=== PATIENT | female | born 1985 | race Caucasian/White ===

== ENCOUNTER 2016-07-19 12:40 | Emergency (ER) | payer MEDICAID ==
--- NOTE | 2016-07-19 12:52 | Emergency Department Record ---
History of Present Illness - General Chief complaint: ENT Stated complaint: EAR PAIN Time Seen by Provider: 07/19/16 12:52 Source: Patient Mode of Arrival: Ambulatory Limitations: No limitations - History of Present Illness Initial comments: The patient is here due to a one week hx of intermittent R ear pain. The pain is mainly located near the R TMJ area. It comes and goes and is gone presently. She denies any ST, fever, dental pain, or ear drainage. She did see someone last week in [place] and was given ear drops but they have not helped. MD complaint: Ear pain Onset/Timin -: Week(s) Location: R ear Severity: Moderate Severity scale (1-10): 6 Quality: Sharp Consistency: Constant Improves with: None Worsens with: None - Related Data Home Medications Medication Instructions Recorded Confirmed Last Taken Control Pill 12/26/13 12/26/13 Unknown Omeprazole 20 mg PO DAILY 07/19/16 07/19/16 Unknown Venlafaxine HCl [Effexor] 75 mg PO DAILY 07/19/16 07/19/16 Unknown Previous Rx's Medication Instructions Recorded Naproxen [Naprosyn] 500 mg PO BID #14 tablet. 07/19/16 Allergies Allergy/AdvReac Type Severity Reaction Status Date / Time acetaminophen [From Vicodin] AdvReac NAUSEA AND Verified 12/26/13 15:54 VOMITING hydrocodone bitartrate AdvReac NAUSEA AND Verified 12/26/13 15:54 [From Vicodin] VOMITING Travel Screening - Travel/Exposure Within Last 30 Days Have you traveled within the last 30 days?: No Review of Systems Constitutional: Denies: Chills, Fever Eyes: Denies: Eye discharge ENT: Denies: Congestion Respiratory: Denies: Cough, Dyspnea Past Medical History - SOCIAL HISTORY Smoking Status: Never smoker - RESPIRATORY Hx Respiratory Disorders: No - CARDIOVASCULAR Hx Cardio Disorders: Yes Hx Palpitations: Yes - NEURO Hx Neuro Disorders: No - GI Hx GI Disorders: No - Hx Genitourinary Disorders: No - ENDOCRINE Hx Endocrine Disorders: No - MUSCULOSKELETAL Hx Musculoskeletal Disorders: No - PSYCH Hx Psych Problems: No - HEMATOLOGY/ONCOLOGY Hx Hematology/Oncology Disorders: No Family Medical History Any Significant Family History?: No Physical Exam - General General Appearance: Alert, Oriented x3, Cooperative, No acute distress - Head Head exam: Atraumatic, Normocephalic, Normal inspection - Eye Eye exam: Normal appearance, PERRL - ENT ENT exam: Normal exam, Mucous membranes moist, Normal external ear exam, Normal orophraynx, TM's normal bilaterally Ear exam: Normal external inspection. negative: Auricular hematoma, Auricular trauma, External canal tenderness Teeth exam: Normal inspection. negative: Dental caries Throat exam: Normal inspection. negative: Tonsillar erythema, Tonsillar exudate - Neck Neck exam: Normal inspection, Full ROM. negative: Lymphadenopathy, Meningismus , Tenderness - Respiratory Respiratory exam: Normal lung sounds bilaterally. negative: Respiratory distress Course Vital Signs 07/19/16 12:46 Temperature 97.9 F Pulse Rate 72 Respiratory 12 Rate Blood Pressure 115/67 Pulse Ox 99 - Reevaluation(s) Reevaluation #1: I explained to the patient that the ear appears normal and there is no evidence for any infection. She is to see her PCP next week for recheck. 07/19/16 13:00 Disposition Disposition: Discharge Clinical Impression: Ear pain, right Disposition: Home, Self-Care Condition: (1) Good Instructions: Earache (ED) Additional Instructions: Please take Naprosyn for pain. Please see your PCP for recheck next week. Prescriptions: Naproxen [Naprosyn] 500 mg PO BID #14 tablet.dr Forms: Patient Portal Access Time of Disposition: 12:58
== END 2016-07-19 13:13 | disposition home or self-care (01) ==
LOC: ER 12:40
DX: H92.01 Otalgia, right ear (principal)
CPT/HCPCS: 99282

== ENCOUNTER 2017-10-01 19:29 | Emergency (ER) | payer MEDICAID ==
[2017-10-01] MEDS ORDERED: PROPARACAINE HCL OPTH 15ML BTL OPTH ONE ×2 (19:47→19:48)
--- NOTE | 2017-10-01 20:04 | Emergency Department Record ---
History of Present Illness - General Chief complaint: Eye Problem Stated complaint: SOMETHING IN RT EYE Time Seen by Provider: 10/01/17 19:56 Source: Patient Mode of Arrival: Ambulatory Limitations: No limitations Travel/Exposure to [facility] [place] Within 21 Days of Symptoms: No - History of Present Illness Initial comments: 32 yo female presents to ED for evaluation of redness and irritation to the right eye that began 24 hours ago, reports "I feel like there is something in the eye". Patient denies specific injury, reports that she noticed her eye symptoms shortly after having intercourse with her significant other. Patient denies the use of contact lenses, and reports irrigating the eye last night as she felt there may be a hair in the eye. Patient also reports drainage from the eye this morning. MD chief complaint: Eye redness, Foreign body Onset/Timin -: Days(s) Onset Description: Gradual Location: Right eye Place: Home Eye Symptoms: Blurry vision, Itching, Redness Severity: Moderate Severity scale (1-10): 3 If Pain, Quality: Aching Consistency: Constant Associated Symptoms: None Treatments Prior to Arrival: None - Related Data Visual acuity (L) = 20/: 20 Visual acuity (R) = 20/: 50 With correction: Yes (near and f) Hx Tetanus Toxoid Vaccination: Yes Year of Tetanus Vaccination: unknown Patient Tetanus UTD (within 5 yrs): Yes (3 years ago) Home Medications Medication Instructions Recorded Confirmed Last Taken Loratadine [Allergy Relief] 10 mg PO DAILY 10/01/17 10/01/17 1 Day Ago ~09/30/17 Previous Rx's Medication Instructions Recorded Erythromycin Base [Erythromycin 1 apply AFFEYE BID #1 tube 10/01/17 OPTH Ointment] Allergies Allergy/AdvReac Type Severity Reaction Status Date / Time hydrocodone bitartrate AdvReac NAUSEA AND Verified 10/01/17 19:44 [From Vicodin] VOMITING Travel Screening - Travel/Exposure Within Last 30 Days Have you traveled within the last 30 days?: No - Travel/Exposure Within Last Year Have you traveled outside the [place] in the last year?: No - Additonal Travel Details Have you been exposed to anyone with a communicable illness?: No - Travel Symptoms Symptom Screening: None Review of Systems Constitutional: Denies: Chills, Fever, Malaise, Night sweats Eyes: Reports: Eye discharge, Vision change. Denies: Eye pain ENT: Denies: Congestion, Ear pain, Epistaxis Respiratory: Denies: Cough, Dyspnea Cardiovascular: Denies: Chest pain, Dyspnea on exertion Endocrine: Denies: Fatigue, Heat or cold intolerance Gastrointestinal: Denies: Abdominal pain, Nausea, Vomiting Genitourinary: Denies: Incontinence, Retention Musculoskeletal: Denies: Arthralgia, Back pain, Gout, Joint swelling Skin: Denies: Bruising, Change in color Neurological: Denies: Abnormal gait, Confusion, Headache, Tingling, Tremors Psychiatric: Denies: Anxiety Hematological/Lymphatic: Denies: Anemia, Blood Clots Past Medical History - SOCIAL HISTORY Smoking Status: Never smoker Alcohol Use: None Drug Use: None - RESPIRATORY Hx Respiratory Disorders: No - CARDIOVASCULAR Hx Cardio Disorders: Yes Hx Palpitations: Yes - NEURO Hx Neuro Disorders: No - GI Hx GI Disorders: No - Hx Genitourinary Disorders: No - ENDOCRINE Hx Endocrine Disorders: No - MUSCULOSKELETAL Hx Musculoskeletal Disorders: No - PSYCH Hx Psych Problems: No - HEMATOLOGY/ONCOLOGY Hx Hematology/Oncology Disorders: No Family Medical History Any Significant Family History?: Yes Physical Exam - General General Appearance: Alert, Oriented x3, Cooperative, Mild distress Limitations: No limitations - Head Head exam: Atraumatic, Normocephalic, Normal inspection Head exam detail: negative: Abrasion, Contusion, Carbajal's sign, General tenderness, Hematoma, Laceration - Eye Eye exam: PERRL, Conjunctival injection, Other (There is no florurseceine uptake on examination to suggest corneal abrasion, no FB identified, Negative Eduardo's sign, and no FB identified upper/lower lid eversion.). negative: Periorbital swelling, Periorbital tenderness, Scleral icterus With correction: Yes (near and f) - ENT Ear exam: negative: Auricular hematoma, Auricular trauma Nasal Exam: negative: Active bleeding, Discharge, Dried blood, Foreign body Mouth exam: negative: Drooling, Laceration, Muffled voice, Tongue elevation - Neck Neck exam: Normal inspection. negative: Meningismus, Tenderness - Respiratory Respiratory exam: Normal lung sounds bilaterally. negative: Rhonchi, Stridor, Wheezes - Cardiovascular Cardiovascular Exam: Regular rate, Normal rhythm, Normal heart sounds - GI/Abdominal GI/Abdominal exam: Soft. negative: Distended, Rebound, Rigid, Tenderness - Rectal Rectal exam: Deferred - exam: Deferred - Extremities Extremities exam: Normal inspection. negative: Calf tenderness, Pedal edema, Tenderness - Back Back exam: Denies: CVA tenderness (R), CVA tenderness (L) - Neurological Neurological exam: Alert, Normal gait, Oriented X3 - Psychiatric Psychiatric exam: Normal affect, Normal mood - Skin Skin exam: Normal color. negative: Abrasion Type of lesion: negative: abrasion Course Vital Signs 10/01/17 19:37 Temperature 98.0 F Pulse Rate 80 Respiratory 20 Rate Blood Pressure 110/66 Pulse Ox 97 - Reevaluation(s) Reevaluation #1: 10/01/17 20:02 There is no florursecein uptake on examination to suggest corneal abrasion, no FB identified, Negative Siedel's sign, and no FB identified upper/lower lid eversion. No dendrites present on examination. Anterior chamber appears clear with no haziness. blood, or infection. VA 20/20 left, 20/50 right Symptoms appear c/w conjunctivitis of the right eye, will prescribe erythromycin drops for treatment for possible STD vs. other infection to the eye with instructions to follow-up with Sagrario Garcia tomorrow for re-evaluation. Disposition Disposition: Discharge Clinical Impression: Conjunctivitis Qualifiers: Conjunctivitis type: acute Acute conjunctivitis type: unspecified Laterality: right Qualified Code(s): H10.31 - Unspecified acute conjunctivitis, right eye Disposition: Home, Self-Care Condition: (2) Stable Instructions: Conjunctivitis (ED) Additional Instructions: Return to ED if your symptoms worsen or if you have any concerns. Erythromycin eye drops as directed. Call Dr. Garcia for follow-up appointment tomorrow. Prescriptions: Erythromycin Base [Erythromycin OPTH Ointment] 1 apply AFFEYE BID #1 tube Referrals: NELLIE GARCIA [MEDICAL DOCTOR] - Time of Disposition: 20:06 Quality - Quality Measures Quality Measures: N/A - Blood Pressure Screening Does Patient Have Any of the Following: No Blood Pressure Classification: Normal BP Reading Systolic Measurement: 110 Diastolic Measurement: 66 Screening for High Blood Pressure: < Normal BP, F/U Not Required > [[id number]]
== END 2017-10-01 20:19 | disposition home or self-care (01) ==
LOC: ER 19:29
DX: H10.31 Unspecified acute conjunctivitis, right eye (principal)
CPT/HCPCS: 99282